=== PATIENT | male | born 1945 | race Caucasian/White ===

== ENCOUNTER 2016-10-29 21:53 | Emergency (ER) | payer MEDICARE, MEDICAID ==
[~2016-10-29] VITALS: Ht 172.7 cm; Wt 84.1 kg
[~2016-10-29 21:53] MED LIST: FLUP5 PO; OLAN405V IM; TRIH5TAB2 PO
[2016-10-29 23:24] LABS: BASOPHILS % (AUTO) 0.5 % (0.0-2.0); EOSINOPHILS % (AUTO) 3.6 % (1.0-6.0); HEMATOCRIT 34.1 % (41-53); HEMOGLOBIN 11.5 g/dL (13.5-17.5); LYMPHOCYTES # (AUTO) 1.9 K/uL (1.0-4.8); LYMPHOCYTES % (AUTO) 20.8 % (22.0-44.0); MEAN CORPUSCULAR HEMOGLOBIN 31.3 pg (26.0-34.0); MEAN CORPUSCULAR HGB CONC 33.6 G/dL (31.0-37.0); MEAN CORPUSCULAR VOLUME 93 fL (80-100); MONOCYTES # (AUTO) 1.1 K/uL (0.1-1.0); MONOCYTES % (AUTO) 11.7 % (2.0-9.0); NEUTROPHILS # (AUTO) 5.7 K/uL (1.8-7.7); NEUTROPHILS % (AUTO) 63.4 % (40.0-70.0); PLATELET COUNT (AUTO) 276 K/uL (150-450); RED BLOOD CELL COUNT(AUTO) 3.67 MIL/uL (4.50-5.90)
[2016-10-29 23:32] LABS: ANION GAP 5 mmol/L (8-16); CALCIUM, TOTAL 9.1 mg/dL (8.8-10.5); CARBON DIOXIDE 31 mmol/L (22-29); CHLORIDE 108 mmol/L (98-107); CREATININE 1.57 mg/dL (0.60-1.30); GLOMERULAR FILTR. RATE CALC 44 mL/min (>60); POTASSIUM 4.2 mmol/L (3.5-5.1); SODIUM SERUM 144 mmol/L (136-145); UREA NITROGEN, BLOOD 29 mg/dL (7-18)
[2016-10-29 23:38] LABS: ALANINE AMINOTRANSFERASE 26 U/L (12-78); ALBUMIN 3.1 g/dL (3.4-5.0); ASPARTATE AMINOTRANSFERASE 19 U/L (15-37); BILIRUBIN,TOTAL 0.3 mg/dL (0.1-1.0); TOTAL PROTEIN, SERUM 6.7 g/dL (6.4-8.2)
[2016-10-30 00:36] VITALS: BP 133/80
== END 2016-10-30 00:58 | disposition home or self-care (01) ==
LOC: EMS 21:54
DX: F25.9 Schizoaffective disorder, unspecified (principal); B30.9 Viral conjunctivitis, unspecified; J44.9 Chronic obstructive pulmonary disease, unspecified; F17.210 Nicotine dependence, cigarettes, uncomplicated; Z59.0 Homelessness
CPT/HCPCS: 36415; 80053; 84484; 85025; 93005; 99285; 99406; G0480

== ENCOUNTER 2016-10-30 19:56 | Emergency (ER) | payer MEDICARE, MEDICAID ==
[~2016-10-30] VITALS: Ht 172.7 cm; Wt 84.1 kg
[2016-10-30 20:47] VITALS: BP 130/82
== END 2016-10-30 21:26 | disposition home or self-care (01) ==
LOC: EMS 19:57
DX: F25.9 Schizoaffective disorder, unspecified (principal); F17.210 Nicotine dependence, cigarettes, uncomplicated; Z59.0 Homelessness
CPT/HCPCS: 99283

== ENCOUNTER 2016-10-31 12:40 | Emergency (ER) | payer MEDICARE, MEDICAID ==
[~2016-10-31] VITALS: Ht 177.8 cm; Wt 81.8 kg
[2016-10-31 13:33] LABS: BASOPHILS % (AUTO) 0.7 % (0.0-2.0); EOSINOPHILS % (AUTO) 3.5 % (1.0-6.0); HEMATOCRIT 35.7 % (41-53); HEMOGLOBIN 11.9 g/dL (13.5-17.5); LYMPHOCYTES # (AUTO) 1.7 K/uL (1.0-4.8); LYMPHOCYTES % (AUTO) 21.8 % (22.0-44.0); MEAN CORPUSCULAR HEMOGLOBIN 31.3 pg (26.0-34.0); MEAN CORPUSCULAR HGB CONC 33.2 G/dL (31.0-37.0); MEAN CORPUSCULAR VOLUME 94 fL (80-100); MONOCYTES # (AUTO) 0.6 K/uL (0.1-1.0); MONOCYTES % (AUTO) 8.2 % (2.0-9.0); NEUTROPHILS % (AUTO) 65.8 % (40.0-70.0); PLATELET COUNT (AUTO) 230 K/uL (150-450); RED BLOOD CELL COUNT(AUTO) 3.79 MIL/uL (4.50-5.90); RED CELL DISTRIBUTION WIDTH 15.2 % (11.5-14.5); WHITE BLOOD COUNT (AUTO) 7.6 K/uL (4.5-11.0)
[2016-10-31 13:43] LABS: ANION GAP 10 mmol/L (8-16); CALCIUM, TOTAL 9.2 mg/dL (8.8-10.5); CARBON DIOXIDE 26 mmol/L (22-29); CHLORIDE 110 mmol/L (98-107); CREATININE 1.63 mg/dL (0.60-1.30); GLOMERULAR FILTR. RATE CALC 42 mL/min (>60); SODIUM SERUM 146 mmol/L (136-145); UREA NITROGEN, BLOOD 21 mg/dL (7-18)
[2016-10-31 13:50] LABS: ALANINE AMINOTRANSFERASE 21 U/L (12-78); ALBUMIN 3.3 g/dL (3.4-5.0); ASPARTATE AMINOTRANSFERASE 19 U/L (15-37); BILIRUBIN,TOTAL 0.3 mg/dL (0.1-1.0)
[2016-10-31 15:01] VITALS: BP 128/89
[2016-10-31 21:28] LABS: GLUCOSE,POINT OF CARE 101 MG/DL (70-110)
== END 2016-10-31 16:25 | disposition home or self-care (01) ==
LOC: EMS 12:42
DX: F25.9 Schizoaffective disorder, unspecified (principal); F17.210 Nicotine dependence, cigarettes, uncomplicated
CPT/HCPCS: 36415; 80053; 82962; 85025; 99284; G0480

== ENCOUNTER 2016-11-02 00:41 | Emergency (ER) | payer MEDICARE, MEDICAID ==
[~2016-11-02] VITALS: Ht 180.3 cm; Wt 81.5 kg
[2016-11-02 02:54] VITALS: BP 134/79
== END 2016-11-02 02:57 | disposition home or self-care (01) ==
LOC: EMS 00:42
DX: M21.611 Bunion of right foot (principal); F25.9 Schizoaffective disorder, unspecified; F10.20 Alcohol dependence, uncomplicated; F17.210 Nicotine dependence, cigarettes, uncomplicated
CPT/HCPCS: 99283; 99406

== ENCOUNTER 2016-11-14 16:41 | Emergency (ER) | payer MEDICARE, MEDICAID ==
[~2016-11-14] VITALS: Ht 175.3 cm; Wt 81.8 kg
[2016-11-14 18:02] VITALS: BP 145/87
== END 2016-11-14 18:18 | disposition home or self-care (01) ==
LOC: EMS 16:44
DX: F20.9 Schizophrenia, unspecified (principal); F17.210 Nicotine dependence, cigarettes, uncomplicated; Z59.0 Homelessness
CPT/HCPCS: 99284

== ENCOUNTER 2016-11-16 13:04 | Emergency (ER) | payer MEDICARE, MEDICAID ==
[~2016-11-16] VITALS: Ht 180.3 cm; Wt 84.5 kg
[2016-11-16 13:09] VITALS: BP 142/82
== END 2016-11-16 15:31 | disposition home or self-care (01) ==
LOC: EMS 13:04
DX: F20.9 Schizophrenia, unspecified (principal); F17.210 Nicotine dependence, cigarettes, uncomplicated; Z59.0 Homelessness
CPT/HCPCS: 99284

== ENCOUNTER 2016-11-18 16:35 | Inpatient (IN) | payer MEDICARE, MEDICAID ==
[~2016-11-18] VITALS: Ht 177.8 cm; Wt 90.3 kg
[2016-11-18] MEDS ORDERED: DiphenhydrAMINE HCL 50 MG/ML VIAL ONE (17:24)
[2016-11-18] MEDS ORDERED: HALOPERIDOL LACTATE 5 MG/ML VIAL ONE (17:24)
[2016-11-18] MEDS ORDERED: LORazepam 2 MG/ML VIAL ONE (17:24)
[2016-11-18] MEDS ORDERED: LORazepam 2 MG/ML VIAL IM ONE (17:30)
[2016-11-18] MEDS ORDERED: HALOPERIDOL LACTATE 5 MG/ML VIAL IM ONE (17:30)
[2016-11-18] MEDS ORDERED: DiphenhydrAMINE HCL 50 MG/ML VIAL IM ONE (17:30)
[2016-11-18 18:52] LABS: BASOPHILS % (AUTO) 0.8 % (0.0-2.0); EOSINOPHILS % (AUTO) 3.3 % (1.0-6.0); HEMATOCRIT 34.9 % (41-53); HEMOGLOBIN 11.4 g/dL (13.5-17.5); LYMPHOCYTES # (AUTO) 2.2 K/uL (1.0-4.8); LYMPHOCYTES % (AUTO) 26.2 % (22.0-44.0); MEAN CORPUSCULAR HEMOGLOBIN 30.8 pg (26.0-34.0); MEAN CORPUSCULAR HGB CONC 32.6 G/dL (31.0-37.0); MEAN CORPUSCULAR VOLUME 95 fL (80-100); MONOCYTES % (AUTO) 12.2 % (2.0-9.0); NEUTROPHILS # (AUTO) 4.7 K/uL (1.8-7.7); NEUTROPHILS % (AUTO) 57.5 % (40.0-70.0); PLATELET COUNT (AUTO) 262 K/uL (150-450); RED BLOOD CELL COUNT(AUTO) 3.69 MIL/uL (4.50-5.90); RED CELL DISTRIBUTION WIDTH 15.3 % (11.5-14.5); WHITE BLOOD COUNT (AUTO) 8.2 K/uL (4.5-11.0)
[2016-11-18 19:11] LABS: ANION GAP 10 mmol/L (8-16); CALCIUM, TOTAL 8.2 mg/dL (8.8-10.5); CARBON DIOXIDE 29 mmol/L (22-29); CHLORIDE 109 mmol/L (98-107); CREATININE 1.54 mg/dL (0.60-1.30); GLOMERULAR FILTR. RATE CALC 45 mL/min (>60); SODIUM SERUM 148 mmol/L (136-145); UREA NITROGEN, BLOOD 35 mg/dL (7-18)
[2016-11-18 19:17] LABS: ALANINE AMINOTRANSFERASE 20 U/L (12-78); ALBUMIN 2.9 g/dL (3.4-5.0); ASPARTATE AMINOTRANSFERASE 16 U/L (15-37); BILIRUBIN,TOTAL 0.2 mg/dL (0.1-1.0); TOTAL PROTEIN, SERUM 6.3 g/dL (6.4-8.2)
[2016-11-18] MEDS ORDERED: ZOLPIDEM TARTRATE 10 MG TABLET PO PRN (22:00)
[2016-11-19 02:47] VITALS: BP 107/64
[2016-11-19 08:44] VITALS: BP 128/65
[2016-11-19] MEDS ORDERED: IBUPROFEN 600 MG TABLET PO PRN (09:00)
[2016-11-19] MEDS ORDERED: ONDANSETRON HCL 4 MG TABLET PO PRN (09:00)
[2016-11-19] MEDS ORDERED: BENZOCAINE/MENTHOL LOZENGE MM PRN (09:00)
[2016-11-19] MEDS ORDERED: LOPERAMIDE HCL 2 MG CAPSULE PO PRN (09:00)
[2016-11-19] MEDS ORDERED: ACETAMINOPHEN 325 MG TABLET PO PRN (09:00)
[2016-11-19] MEDS ORDERED: ALBUTEROL SULFATE HFA 90 MCG/PUFF 8 GM INHALER IH PRN (09:00)
[2016-11-19] MEDS ORDERED: MAGNESIUM HYDROXIDE SUSPENSION 30 ML UDCUP PO PRN (09:00)
[2016-11-19] MEDS ORDERED: PETROLATUM,WHITE 71 GM JELLY TP PRN (09:00)
[2016-11-19] MEDS ORDERED: GENTAMICIN SULFATE 0.3% OPHTHALMIC SOLUTION 5 ML OS SCH (09:00)
[2016-11-19] MEDS ORDERED: CloNIDine HCL 0.1 MG TABLET PO PRN (09:00)
[2016-11-19] MEDS ORDERED: MAG HYDROX/AL HYDROX/SIMETH ES 30 ML SUSPENSION UDCUP PO PRN (09:00)
[2016-11-19] MEDS ORDERED: BACITRACIN 28.4 GM OINTMENT TP PRN (09:00)
[2016-11-19 09:09] LABS: CHOL/HDL RATIO 2.9 (4.2-7.3)
[2016-11-19] MEDS ORDERED: GuaiFENesin/D-METHORPHAN/PHENYLEPH 5 ML LIQUID ORAL.SYG PO PRN (09:15)
[2016-11-19] MEDS: LISINOPRIL 10 MG TABLET PO SCH (09:37)
[2016-11-19] MEDS: OMEPRAZOLE 20 MG CAPSULE PO SCH (09:37)
[2016-11-19] MEDS: NICOTINE 21 MG/24 HOUR PATCH TD SCH (09:38)
[2016-11-19 16:16] VITALS: BP 129/77
[2016-11-19] MEDS: GENTAMICIN SULFATE 0.3% OPHTHALMIC SOLUTION 5 ML OS SCH ×2 (17:13→20:39)
[2016-11-19] MEDS: RisperiDONE 0.5 MG TABLET PO SCH (17:14)
[2016-11-19] MEDS: LORazepam 2 MG TABLET PO PRN (17:14)
[2016-11-20 06:37] VITALS: BP 126/61
[2016-11-20 08:19] LABS: ANION GAP 9 mmol/L (8-16); CALCIUM, TOTAL 8.4 mg/dL (8.8-10.5); CARBON DIOXIDE 26 mmol/L (22-29); CHLORIDE 107 mmol/L (98-107); CREATININE 1.03 mg/dL (0.60-1.30); GLOMERULAR FILTR. RATE CALC > 60 mL/min (>60); POTASSIUM 4.1 mmol/L (3.5-5.1); SODIUM SERUM 142 mmol/L (136-145); THYROID STIMULATING HORMONE 3.46 uIU/mL (0.36-3.74); UREA NITROGEN, BLOOD 25 mg/dL (7-18)
[2016-11-20 08:44] VITALS: BP 125/76
[2016-11-20] MEDS: LORazepam 2 MG TABLET PO PRN ×2 (09:43→17:14)
[2016-11-20] MEDS: NICOTINE 21 MG/24 HOUR PATCH TD SCH (10:05)
[2016-11-20] MEDS: OMEPRAZOLE 20 MG CAPSULE PO SCH (10:05)
[2016-11-20] MEDS: RisperiDONE 0.5 MG TABLET PO SCH ×2 (10:05→17:14)
[2016-11-20] MEDS: LISINOPRIL 10 MG TABLET PO SCH (10:05)
[2016-11-20] MEDS: MULTIVITAMINS WITH MINERALS, THERAPEUTIC TABLET PO SCH (10:05)
[2016-11-20] MEDS: GENTAMICIN SULFATE 0.3% OPHTHALMIC SOLUTION 5 ML OS SCH ×4 (10:05→20:34)
[2016-11-20 16:00] VITALS: BP 138/78
[2016-11-21 06:22] VITALS: BP 139/88
[2016-11-21] MEDS: GENTAMICIN SULFATE 0.3% OPHTHALMIC SOLUTION 5 ML OS SCH ×4 (08:26→20:46)
[2016-11-21] MEDS: OMEPRAZOLE 20 MG CAPSULE PO SCH (08:27)
[2016-11-21] MEDS: RisperiDONE 0.5 MG TABLET PO SCH ×2 (08:27→16:23)
[2016-11-21] MEDS: NICOTINE 21 MG/24 HOUR PATCH TD SCH (08:27)
[2016-11-21] MEDS: MULTIVITAMINS WITH MINERALS, THERAPEUTIC TABLET PO SCH (08:27)
[2016-11-21] MEDS: LISINOPRIL 10 MG TABLET PO SCH (08:27)
[2016-11-21] MEDS: LORazepam 2 MG TABLET PO PRN ×3 (08:27→20:47)
[2016-11-21 08:46] VITALS: BP 155/79
[2016-11-21 16:00] VITALS: BP 126/72
[2016-11-21] MEDS: HALOPERIDOL 5 MG TABLET PO PRN (16:24)
[2016-11-22 03:07] VITALS: BP 127/69
[2016-11-22] MEDS: MULTIVITAMINS WITH MINERALS, THERAPEUTIC TABLET PO SCH (08:25)
[2016-11-22] MEDS: RisperiDONE 0.5 MG TABLET PO SCH ×2 (08:25→16:32)
[2016-11-22] MEDS: LISINOPRIL 10 MG TABLET PO SCH (08:25)
[2016-11-22] MEDS: CHOLECALCIFEROL (VIT D3) 1,000 UNITS TABLET PO SCH (08:25)
[2016-11-22] MEDS: NICOTINE 21 MG/24 HOUR PATCH TD SCH (08:25)
[2016-11-22] MEDS: OMEPRAZOLE 20 MG CAPSULE PO SCH (08:25)
[2016-11-22] MEDS: GENTAMICIN SULFATE 0.3% OPHTHALMIC SOLUTION 5 ML OS SCH ×4 (08:25→20:50)
[2016-11-22 08:30] VITALS: BP 130/80
[2016-11-22 16:00] VITALS: BP 132/84
[2016-11-22] MEDS: LORazepam 2 MG TABLET PO PRN (16:33)
[2016-11-22] MEDS: HALOPERIDOL 5 MG TABLET PO PRN (16:33)
[2016-11-23 02:50] VITALS: BP 126/77
[2016-11-23] MEDS: MULTIVITAMINS WITH MINERALS, THERAPEUTIC TABLET PO SCH (08:37)
[2016-11-23] MEDS: OMEPRAZOLE 20 MG CAPSULE PO SCH (08:37)
[2016-11-23] MEDS: NICOTINE 21 MG/24 HOUR PATCH TD SCH (08:37)
[2016-11-23] MEDS: RisperiDONE 1 MG TABLET PO SCH ×2 (08:37→16:21)
[2016-11-23] MEDS: LISINOPRIL 10 MG TABLET PO SCH (08:37)
[2016-11-23] MEDS: CHOLECALCIFEROL (VIT D3) 1,000 UNITS TABLET PO SCH (08:37)
[2016-11-23] MEDS: GENTAMICIN SULFATE 0.3% OPHTHALMIC SOLUTION 5 ML OS SCH ×4 (08:38→21:10)
[2016-11-23 09:18] VITALS: BP 140/76
[2016-11-23 16:00] VITALS: BP 138/87
[2016-11-23] MEDS: HALOPERIDOL 5 MG TABLET PO PRN (16:21)
[2016-11-23] MEDS: LORazepam 2 MG TABLET PO PRN (16:22)
[2016-11-24 03:24] VITALS: BP 140/86
[2016-11-24] MEDS: LORazepam 2 MG TABLET PO PRN ×3 (03:27→20:12)
[2016-11-24 08:20] VITALS: BP 122/70
[2016-11-24] MEDS: GENTAMICIN SULFATE 0.3% OPHTHALMIC SOLUTION 5 ML OS SCH ×4 (09:01→20:12)
[2016-11-24] MEDS: RisperiDONE 1 MG TABLET PO SCH ×2 (09:02→16:12)
[2016-11-24] MEDS: MULTIVITAMINS WITH MINERALS, THERAPEUTIC TABLET PO SCH (09:02)
[2016-11-24] MEDS: OMEPRAZOLE 20 MG CAPSULE PO SCH (09:02)
[2016-11-24] MEDS: NICOTINE 21 MG/24 HOUR PATCH TD SCH (09:04)
[2016-11-24] MEDS: LISINOPRIL 10 MG TABLET PO SCH (09:08)
[2016-11-24] MEDS: CHOLECALCIFEROL (VIT D3) 1,000 UNITS TABLET PO SCH (09:08)
[2016-11-24 16:04] VITALS: BP 138/88
[2016-11-24] MEDS: HALOPERIDOL 5 MG TABLET PO PRN (16:12)
[2016-11-25 06:42] VITALS: BP 115/65
[2016-11-25 08:05] VITALS: BP 119/78
[2016-11-25] MEDS: OMEPRAZOLE 20 MG CAPSULE PO SCH (09:38)
[2016-11-25] MEDS: LORazepam 2 MG TABLET PO PRN (09:38)
[2016-11-25] MEDS: LISINOPRIL 10 MG TABLET PO SCH (09:38)
[2016-11-25] MEDS: GENTAMICIN SULFATE 0.3% OPHTHALMIC SOLUTION 5 ML OS SCH ×2 (09:39→11:58)
[2016-11-25] MEDS: NICOTINE 21 MG/24 HOUR PATCH TD SCH (09:39)
[2016-11-25] MEDS: MULTIVITAMINS WITH MINERALS, THERAPEUTIC TABLET PO SCH (09:39)
[2016-11-25] MEDS: RisperiDONE 1 MG TABLET PO SCH (09:39)
[2016-11-25] MEDS: CHOLECALCIFEROL (VIT D3) 1,000 UNITS TABLET PO SCH (09:39)
[2016-11-25] MEDS ORDERED: VITAD1000 PO (11:58)
[2016-11-25] MEDS ORDERED: LISI-661 PO (11:58)
[2016-11-25] MEDS ORDERED: RISP1 PO (11:58)
== END 2016-11-25 13:49 | disposition home or self-care (01) | DRG 885 ==
LOC: EMS 16:38 → B3A 23:27
PROVIDERS: ADMIT Psychiatry & Neurology Psychiatry; ATTEND Psychiatry & Neurology Psychiatry
DX: F29 Unspecified psychosis not due to a substance or known physiological condition (principal); N17.9 Acute kidney failure, unspecified; E46 Unspecified protein-calorie malnutrition; E87.0 Hyperosmolality and hypernatremia; R45.851 Suicidal ideations; F25.9 Schizoaffective disorder, unspecified; J44.9 Chronic obstructive pulmonary disease, unspecified; D64.9 Anemia, unspecified; E86.0 Dehydration; Z59.0 Homelessness; H10.9 Unspecified conjunctivitis; I10 Essential (primary) hypertension; K21.9 Gastro-esophageal reflux disease without esophagitis; K59.00 Constipation, unspecified; M19.90 Unspecified osteoarthritis, unspecified site; F17.200 Nicotine dependence, unspecified, uncomplicated; Z78.1 Physical restraint status; F10.21 Alcohol dependence, in remission; E55.9 Vitamin D deficiency, unspecified; Z71.6 Tobacco abuse counseling; Z68.28 Body mass index [BMI] 28.0-28.9, adult
CPT/HCPCS: 70450; 82306; 82607; 82746; 84439; 84443; 86592; 96372; 99291; G0480; J1200; J1630; J2060

== ENCOUNTER 2017-08-05 19:19 | Inpatient (IN) | payer MEDICARE, MEDICAID ==
[~2017-08-05] VITALS: Ht 180.3 cm; Wt 97.5 kg
[~2017-08-05 19:19] MED LIST changes: +DOCU100C33 PO; -FLUP5 PO; +LEVO25TA9 PO; +LISI-661 PO; -OLAN405V IM; +OMEP20 PO; +RISP1 PO; -TRIH5TAB2 PO; +VITAD1000 PO
[2017-08-05] MEDS ORDERED: ZOLPIDEM TARTRATE 10 MG TABLET PO PRN (22:00)
[2017-08-05] MEDS ORDERED: LORazepam 2 MG TABLET PO PRN (22:00)
[2017-08-05] MEDS ORDERED: HALOPERIDOL 5 MG TABLET PO PRN (22:00)
[2017-08-05 22:11] LABS: ANION GAP 9 mmol/L (8-16); CALCIUM, TOTAL 8.8 mg/dL (8.8-10.5); CARBON DIOXIDE 26 mmol/L (22-29); CHLORIDE 101 mmol/L (98-107); CREATININE 1.64 mg/dL (0.60-1.30); GLOMERULAR FILTR. RATE CALC 42 mL/min (>60); GLUCOSE,RANDOM 116 mg/dL (70-110); POTASSIUM 4.1 mmol/L (3.5-5.1); SODIUM SERUM 136 mmol/L (136-145); UREA NITROGEN, BLOOD 14 mg/dL (7-18)
[2017-08-05 22:18] LABS: ALANINE AMINOTRANSFERASE 14 U/L (12-78); ALBUMIN 3.8 g/dL (3.4-5.0); ALKALINE PHOSPHATASE 75 U/L (46-116); ASPARTATE AMINOTRANSFERASE 22 U/L (15-37); BILIRUBIN,TOTAL 0.4 mg/dL (0.1-1.0); TOTAL PROTEIN, SERUM 9.3 g/dL (6.4-8.2)
[2017-08-05 22:20] LABS: BASOPHILS % (AUTO) 0.6 % (0.0-2.0); EOSINOPHILS % (AUTO) 0.2 % (1.0-6.0); HEMOGLOBIN 15.2 g/dL (13.5-17.5); LYMPHOCYTES # (AUTO) 1.8 K/uL (1.0-4.8); LYMPHOCYTES % (AUTO) 14.8 % (22.0-44.0); MEAN CORPUSCULAR HEMOGLOBIN 31.4 pg (26.0-34.0); MEAN CORPUSCULAR HGB CONC 34.6 G/dL (31.0-37.0); MEAN CORPUSCULAR VOLUME 91 fL (80-100); MONOCYTES % (AUTO) 8.5 % (2.0-9.0); NEUTROPHILS # (AUTO) 9.1 K/uL (1.8-7.7); NEUTROPHILS % (AUTO) 75.9 % (40.0-70.0); PLATELET COUNT (AUTO) 319 K/uL (150-450); RED BLOOD CELL COUNT(AUTO) 4.84 MIL/uL (4.50-5.90); RED CELL DISTRIBUTION WIDTH 13.7 % (11.5-14.5)
[2017-08-06] MEDS ORDERED: MUPIROCIN CALCIUM 2% 22 GM OINTMENT TP ONE (01:45)
[2017-08-06] MEDS ORDERED: POVIDONE-IODINE 10% 15 ML SOLUTION UD ONE (07:15)
[2017-08-06 09:27] VITALS: BP 104/54
[2017-08-06] MEDS ORDERED: ACETAMINOPHEN 325 MG TABLET PO PRN (10:30)
[2017-08-06] MEDS ORDERED: CloNIDine HCL 0.1 MG TABLET PO PRN (10:30)
[2017-08-06] MEDS ORDERED: MAG HYDROX/AL HYDROX/SIMETH ES 30 ML SUSPENSION UDCUP PO PRN (10:30)
[2017-08-06] MEDS ORDERED: BACITRACIN 28.4 GM OINTMENT TP PRN (10:30)
[2017-08-06] MEDS ORDERED: ALBUTEROL SULFATE HFA 90 MCG/PUFF 8 GM INHALER IH PRN (10:30)
[2017-08-06] MEDS ORDERED: IBUPROFEN 600 MG TABLET PO PRN (10:30)
[2017-08-06] MEDS ORDERED: LOPERAMIDE HCL 2 MG CAPSULE PO PRN (10:30)
[2017-08-06] MEDS ORDERED: PETROLATUM,WHITE 71 GM JELLY TP PRN (10:30)
[2017-08-06] MEDS ORDERED: MAGNESIUM HYDROXIDE SUSPENSION 30 ML UDCUP PO PRN (10:30)
[2017-08-06] MEDS ORDERED: ONDANSETRON HCL 4 MG TABLET PO PRN (10:30)
[2017-08-06] MEDS ORDERED: BENZOCAINE/MENTHOL LOZENGE MM PRN (10:30)
[2017-08-06] MEDS: RisperiDONE 1 MG TABLET PO SCH (20:34)
[2017-08-06 20:54] VITALS: BP 112/62
[2017-08-07] MEDS ORDERED: -PHARMACY VACCINE NOTE- MISC ONE (03:15)
[2017-08-07] MEDS: LEVOTHYROXINE SODIUM 25 MCG TABLET PO SCH (06:42)
[2017-08-07 06:54] VITALS: BP 135/85
[2017-08-07 08:25] VITALS: BP 124/74
[2017-08-07] MEDS: RisperiDONE 1 MG TABLET PO SCH ×2 (08:32→16:48)
[2017-08-07] MEDS: OMEPRAZOLE 20 MG CAPSULE PO SCH (08:32)
[2017-08-07] MEDS: CHOLECALCIFEROL (VIT D3) 1,000 UNITS TABLET PO SCH (08:32)
[2017-08-07] MEDS: DOCUSATE SODIUM 100 MG CAPSULE PO SCH (08:32)
[2017-08-07] MEDS: LISINOPRIL 10 MG TABLET PO SCH (08:32)
[2017-08-07 16:26] VITALS: BP 107/61
[2017-08-08 02:21] VITALS: BP 144/77
[2017-08-08] MEDS: LEVOTHYROXINE SODIUM 25 MCG TABLET PO SCH (06:18)
[2017-08-08 08:22] VITALS: BP 131/82
[2017-08-08] MEDS: OMEPRAZOLE 20 MG CAPSULE PO SCH (08:47)
[2017-08-08] MEDS: DOCUSATE SODIUM 100 MG CAPSULE PO SCH (08:47)
[2017-08-08] MEDS: RisperiDONE 1 MG TABLET PO SCH ×2 (08:47→16:41)
[2017-08-08] MEDS: CHOLECALCIFEROL (VIT D3) 1,000 UNITS TABLET PO SCH (08:47)
[2017-08-08] MEDS: LISINOPRIL 10 MG TABLET PO SCH (08:47)
[2017-08-08 09:08] LABS: CREATININE 8.22 mg/dL (0.60-1.30); POTASSIUM 5.1 mmol/L (3.5-5.1)
[2017-08-08 16:18] VITALS: BP 128/78
[2017-08-09 04:21] VITALS: BP 106/64
[2017-08-09] MEDS: LEVOTHYROXINE SODIUM 25 MCG TABLET PO SCH (06:51)
[2017-08-09 08:37] VITALS: BP 113/67
[2017-08-09] MEDS: RisperiDONE 1 MG TABLET PO SCH ×2 (09:02→16:37)
[2017-08-09] MEDS: LISINOPRIL 10 MG TABLET PO SCH (09:02)
[2017-08-09] MEDS: DOCUSATE SODIUM 100 MG CAPSULE PO SCH (09:02)
[2017-08-09] MEDS: OMEPRAZOLE 20 MG CAPSULE PO SCH (09:02)
[2017-08-09] MEDS: CHOLECALCIFEROL (VIT D3) 1,000 UNITS TABLET PO SCH (09:02)
[2017-08-09 16:06] VITALS: BP 134/80
[2017-08-10 01:26] VITALS: BP_SYST 84
[2017-08-10] MEDS: LEVOTHYROXINE SODIUM 25 MCG TABLET PO SCH (06:38)
[2017-08-10 07:56] LABS: HEMATOCRIT 35.1 % (41-53); HEMOGLOBIN 12.2 g/dL (13.5-17.5); MEAN CORPUSCULAR HGB CONC 34.6 G/dL (31.0-37.0); MEAN CORPUSCULAR VOLUME 89 fL (80-100); PLATELET COUNT (AUTO) 231 K/uL (150-450); RED BLOOD CELL COUNT(AUTO) 3.92 MIL/uL (4.50-5.90)
[2017-08-10 08:10] VITALS: BP 144/64
[2017-08-10 08:13] LABS: CALCIUM, TOTAL 8.2 mg/dL (8.8-10.5); CREATININE 8.86 mg/dL (0.60-1.30); MAGNESIUM 2.2 mg/dL (1.80-2.40); PHOSPHORUS 5.2 mg/dL (2.5-4.9); POTASSIUM 5.2 mmol/L (3.5-5.1)
[2017-08-10] MEDS: DOCUSATE SODIUM 100 MG CAPSULE PO SCH (08:14)
[2017-08-10] MEDS: LISINOPRIL 10 MG TABLET PO SCH (08:14)
[2017-08-10] MEDS: CHOLECALCIFEROL (VIT D3) 1,000 UNITS TABLET PO SCH (08:14)
[2017-08-10] MEDS: RisperiDONE 1 MG TABLET PO SCH ×2 (08:14→16:41)
[2017-08-10] MEDS: OMEPRAZOLE 20 MG CAPSULE PO SCH (08:14)
[2017-08-10 09:29] LABS: BASOPHILS % (AUTO) 0.5 % (0.0-2.0); LYMPHOCYTES # (AUTO) 1.2 K/uL (1.0-4.8); LYMPHOCYTES % (AUTO) 13.3 % (22.0-44.0); MONOCYTES # (AUTO) 0.9 K/uL (0.1-1.0); MONOCYTES % (AUTO) 10.1 % (2.0-9.0); NEUTROPHILS % (AUTO) 75.1 % (40.0-70.0)
[2017-08-10] MEDS ORDERED: SODIUM POLYSTYRENE SULFONATE 15 GM/60 ML SUSPENSION BOTTLE PO ONE (12:30)
[2017-08-10] MEDS ORDERED: RISP1 PO (15:27)
[2017-08-10 16:33] VITALS: BP 137/77
[2017-08-10 17:36] VITALS: BP 175/84
== END 2017-08-10 16:50 | disposition short-term general hospital (02) | DRG 885 ==
LOC: EMS 19:20 → AHU 08-06 08:44 → B2X 08-06 19:11
PROVIDERS: ADMIT Psychiatry & Neurology Psychiatry; ATTEND Psychiatry & Neurology Psychiatry
DX: F20.0 Paranoid schizophrenia (principal); N17.9 Acute kidney failure, unspecified; R45.851 Suicidal ideations; G30.9 Alzheimer's disease, unspecified; J44.9 Chronic obstructive pulmonary disease, unspecified; F02.81 Dementia in other diseases classified elsewhere, unspecified severity, with behavioral disturbance; F17.210 Nicotine dependence, cigarettes, uncomplicated; Z59.0 Homelessness; M19.90 Unspecified osteoarthritis, unspecified site; K59.00 Constipation, unspecified; F41.9 Anxiety disorder, unspecified; K21.9 Gastro-esophageal reflux disease without esophagitis; I10 Essential (primary) hypertension; G47.00 Insomnia, unspecified; Z56.0 Unemployment, unspecified; E55.9 Vitamin D deficiency, unspecified; E78.5 Hyperlipidemia, unspecified; E03.9 Hypothyroidism, unspecified; R62.7 Adult failure to thrive; S00.01XA Abrasion of scalp, initial encounter; X58.XXXA Exposure to other specified factors, initial encounter; Z79.899 Other long term (current) drug therapy; Y93.89 Activity, other specified; Y92.89 Other specified places as the place of occurrence of the external cause; Y99.8 Other external cause status; Z71.6 Tobacco abuse counseling
CPT/HCPCS: 82306; 83735; 84100; 99285; G0480

== ENCOUNTER 2017-08-10 17:33 | Inpatient (IN) | payer MEDICARE, MEDICAID ==
[2017-08-10 20:04] VITALS: BP 147/87
[2017-08-10] MEDS: SODIUM CHLORIDE 0.9% 1,000 ML IV SCH (22:15)
[2017-08-10] MEDS: RisperiDONE 1 MG TABLET PO SCH (23:07)
[2017-08-11] MEDS ORDERED: ALBUTEROL SULFATE 2.5 MG/0.5 ML NEB SOLUTION NEB PRN (03:45)
[2017-08-11] MEDS ORDERED: IPRATROPIUM BROMIDE 0.5 MG/2.5 ML NEB SOLUTION NEB PRN (03:45)
[2017-08-11] MEDS ORDERED: ACETAMINOPHEN 325 MG TABLET PO PRN (03:45)
[2017-08-11] MEDS ORDERED: HYDROCODONE/ACETAMINOPHEN 5-325 MG TABLET PO PRN (03:45)
[2017-08-11 04:58] VITALS: BP 136/73
[2017-08-11 06:19] LABS: HEMATOCRIT 34.6 % (41-53); HEMOGLOBIN 12.2 g/dL (13.5-17.5); LYMPHOCYTES # (AUTO) 1.5 K/uL (1.0-4.8); LYMPHOCYTES % (AUTO) 16.7 % (22.0-44.0); MEAN CORPUSCULAR HEMOGLOBIN 31.4 pg (26.0-34.0); MEAN CORPUSCULAR HGB CONC 35.2 G/dL (31.0-37.0); MEAN CORPUSCULAR VOLUME 89 fL (80-100); MONOCYTES # (AUTO) 1.1 K/uL (0.1-1.0); MONOCYTES % (AUTO) 12.4 % (2.0-9.0); NEUTROPHILS % (AUTO) 67.9 % (40.0-70.0); PLATELET COUNT (AUTO) 230 K/uL (150-450); RED BLOOD CELL COUNT(AUTO) 3.88 MIL/uL (4.50-5.90); RED CELL DISTRIBUTION WIDTH 13.8 % (11.5-14.5)
[2017-08-11 06:27] LABS: CALCIUM, TOTAL 7.6 mg/dL (8.8-10.5); CREATININE 8.1 mg/dL (0.60-1.30); POTASSIUM 5.1 mmol/L (3.5-5.1)
[2017-08-11] MEDS ORDERED: LEVOTHYROXINE SODIUM 25 MCG TABLET PO SCH (06:30)
[2017-08-11] MEDS: RisperiDONE 1 MG TABLET PO SCH (08:43)
[2017-08-11] MEDS: DOCUSATE SODIUM 100 MG CAPSULE PO SCH ×2 (08:43→08:53)
[2017-08-11] MEDS: SODIUM CHLORIDE 0.9% 1,000 ML IV SCH (08:45)
[2017-08-11] MEDS ORDERED: LISINOPRIL 10 MG TABLET PO SCH (09:00)
[2017-08-11] MEDS ORDERED: OMEPRAZOLE 20 MG CAPSULE PO SCH (09:00)
[2017-08-11] MEDS ORDERED: HEPARIN SODIUM,PORCINE 5,000 UNITS/ML VIAL SQ SCH (09:00)
[2017-08-11] MEDS ORDERED: CHOLECALCIFEROL (VIT D3) 1,000 UNITS TABLET PO SCH (09:00)
[2017-08-11] MEDS ORDERED: ATENOLOL 50 MG TABLET PO SCH (09:00)
== END 2017-08-11 11:30 | disposition still patient (30) | DRG 683 ==
LOC: 6N 17:33
PROVIDERS: ADMIT Internal Medicine; ATTEND Internal Medicine
DX: N17.9 Acute kidney failure, unspecified (principal); F20.0 Paranoid schizophrenia; J44.9 Chronic obstructive pulmonary disease, unspecified; G30.9 Alzheimer's disease, unspecified; F02.81 Dementia in other diseases classified elsewhere, unspecified severity, with behavioral disturbance; F10.10 Alcohol abuse, uncomplicated; I10 Essential (primary) hypertension; K21.9 Gastro-esophageal reflux disease without esophagitis; K59.00 Constipation, unspecified; Z53.21 Procedure and treatment not carried out due to patient leaving prior to being seen by health care provider; M19.90 Unspecified osteoarthritis, unspecified site; Z59.0 Homelessness
CPT/HCPCS: J1644; J7030